=== PATIENT | female | born 1980 | race Two or more races ===

== ENCOUNTER → 2020-07-19 | Emergency (ER) | payer MEDICAID, OTHER ==
[~2020-07-19] VITALS: Ht 162.6 cm; Wt 68.9 kg
[2020-07-19 17:20] VITALS: BP 132/74
== END | disposition left against medical advice (07) ==
LOC: ER 17:01
DX: R05 Cough (principal); R06.02 Shortness of breath; Z53.21 Procedure and treatment not carried out due to patient leaving prior to being seen by health care provider